=== PATIENT | female | born 1985 | race Caucasian/White ===

== ENCOUNTER 2018-02-19 14:36 | Emergency (ER) | payer OTHER ==
--- NOTE | 2018-02-19 15:22 | ED PDOC ---
Lower Extremity Pain/Injury Time Seen by Provider: 02/19/18 14:45 Chief Complaint (Nursing): Lower Extremity Problem/Injury Chief Complaint (Provider): Lower Extremity Problem/Injury History Per: Patient History/Exam Limitations: no limitations Onset/Duration Of Symptoms: Days (x1) Current Symptoms Are (Timing): Still Present Additional Complaint(s): 32 year old female who is 23 weeks presents to the ED for evaluation of left calf pain and swelling that developed yesterday. Today while at work, patient reports that her coworker pointed out that her right leg also looks swollen, despite being painless. Otherwise denies chest pain, shortness of breath, hx of DVT / PE, trauma, numbness, and tingling. OBGYN: Navdeep Aly Past Medical History Reviewed: Historical Data, Nursing Documentation, Vital Signs Vital Signs: Last Vital Signs Temp 98.3 F 02/19/18 14:40 Pulse 80 02/19/18 14:40 Resp 16 02/19/18 14:40 BP 110/74 02/19/18 14:40 Pulse Ox 100 02/19/18 14:40 - Medical History PMH: No Chronic Diseases - Family History Family History: States: Unknown Family Hx - Home Medications Home Medications: Ambulatory Orders Medication Instructions Recorded Mupirocin 2% Cream [Bactroban 1 applic TOP BID #1 tube 03/11/16 Cream] - Allergies Allergies/Adverse Reactions: Allergies Allergy/AdvReac Type Severity Reaction Status Date / Time No Known Allergies Allergy Verified 02/19/18 14:39 Review of Systems ROS Statement: Except As Marked, All Systems Reviewed And Found Negative Cardiovascular: Negative for: Chest Pain Respiratory: Negative for: Shortness of Breath Musculoskeletal: Positive for: Other (left calf pain and swelling; right calf swelling, no pain) Neurological: Negative for: Numbness (or tingling) Physical Exam - Reviewed Nursing Documentation Reviewed: Yes Vital Signs Reviewed: Yes - Physical Exam Appears: Positive for: No Acute Distress (speaking in full sentences) Skin: Positive for: Normal Color. Negative for: Rash Pulses-Dorsalis Pedis (L): 2+ Pulses-Dorsalis Pedis (R): 2+ Extremity: Positive for: Normal ROM, Tenderness (minimal left calf tenderness, no right calf tenderness), Other (non-pitting edema noted to right calf; negative Cj's sign bilaterally) Neurologic/Psych: Positive for: Alert, Oriented (x3) - ECG O2 Sat by Pulse Oximetry: 100 (RA) Pulse Ox Interpretation: Normal Medical Decision Making Medical Decision Making: Time: 1452 Initial Impression: r/o DVT Initial Plan: --US duplex bilateral LE 1617 US FINDINGS: 2-D, color and duplex Doppler analysis of bilateral lower extremity venous circulation using routine protocol from the femoral veins through the popliteal veins. Venous compressibility: Normal. Flow and augmentation patterns: Normal. Visualized veins upper third of calf: Normal. Schroeder cyst: None. IMPRESSION: No sonographic or Doppler evidence for DVT in lower extremities. Scribe Attestation: Documented by Mary Kay Reveles, acting as a scribe for Dashawn Espinosa PA-C. Provider Scribe Attestation: All medical record entries made by the Scribe were at my direction and personally dictated by me. I have reviewed the chart and agree that the record accurately reflects my personal performance of the history, physical exam, medical decision making, and the department course for this patient. I have also personally directed, reviewed, and agree with the discharge instructions and disposition. Disposition - Clinical Impression Clinical Impression: Leg pain - Patient ED Disposition Is Patient to be Admitted: No - Disposition Referrals: Navdeep Aly MD [Staff Provider] - Disposition: Routine/Home Disposition Time: 16:33 Condition: STABLE Additional Instructions: Follow up with your OBGYN for further evaluation. Return to ED immediately if symptoms worsen. NOEMY GALLEGOS, thank you for letting us take care of you today. Your provider was Vivek Haro MD and you were treated for 23 WKS PREG; LT LEG SWELLING. The emergency medical care you received today was directed at your acute symptoms. If you were prescribed any medication, please fill it and take as directed. It may take several days for your symptoms to resolve. Return to the Emergency Department if your symptoms worsen, do not improve, or if you have any other problems. Please contact your doctor or call one of the physicians/clinics you have been referred to that are listed on the Patient Visit Information form that is included in your discharge packet. Bring any paperwork you were given at discharge with you along with any medications you are taking to your follow up visit. Our treatment cannot replace ongoing medical care by a primary care provider outside of the emergency department. Thank you for allowing the [facility] team to be part of your care today. If you had an X-Ray or CT scan: A Radiologist will review the ED reading if any change in treatment is needed we will contact you. If you had a blood, urine, or wound culture: It will take several days for the results, if any change in treatment is needed we will contact you. If you had an STI test: It will take 48 hours for the results. Please call after 1 week if you have not heard back. Instructions: Muscle and Bone Pain (DC) Forms: [employer] (Occitan) Print Language: PANAMANIAN
--- NOTE | 2018-02-19 16:22 | US ---
Date of service: 02/19/2018 HISTORY: L leg pain, b/l leg swelling. PRIORS: None. FINDINGS: 2-D, color and duplex Doppler analysis of bilateral lower extremity venous circulation using routine protocol from the femoral veins through the popliteal veins. Venous compressibility: Normal. Flow and augmentation patterns: Normal. Visualized veins upper third of calf: Normal. Schroeder cyst: None. IMPRESSION: No sonographic or Doppler evidence for DVT in lower extremities.
[2018-02-19 17:00] VITALS: BP 113/72; PULSE 79; RESP 17; TEMP 98.2; O2SAT 99
== END 2018-02-19 17:51 | disposition home or self-care (01) ==
LOC: H.ER 14:36
DX: M79.605 Pain in left leg (principal); Z33.1 Pregnant state, incidental

== ENCOUNTER 2018-05-20 15:15 | Emergency (ER) | payer OTHER ==
[2018-05-20 22:38] VITALS: BP 103/72; PULSE 102; RESP 18; TEMP 98.3; O2SAT 99
== END 2018-05-20 17:00 | disposition home or self-care (01) ==
LOC: H.EROB2 15:15
DX: O47.03 False labor before 37 completed weeks of gestation, third trimester (principal); Z3A.36 36 weeks gestation of pregnancy; O21.0 Mild hyperemesis gravidarum; M79.10 Myalgia, unspecified site

== ENCOUNTER 2018-06-16 18:44 | Inpatient (IN) | payer OTHER ==
[2018-06-16 20:04] VITALS: BMI 27.4
[2018-06-16 21:02] LABS: BASO % 0.4 % (0.0-2.0); EOS % 0.6 % (0.0-4.0); HEMOGLOBIN 12.2 g/dL (12.0-16.0); LYMPH # 1.9 K/uL (1.0-4.3); LYMPH % 22.6 % (20.0-40.0); MEAN CELL VOLUME 77.3 fl (81.0-99.0); MEAN CORPUSCULAR HEMOGLOBIN 24.7 pg (27.0-31.0); MEAN CORPUSCULAR HGB CONC 31.9 g/dL (33.0-37.0); MEAN PLATELET VOLUME 8.9 fl (7.2-11.7); MONO # 0.6 K/uL (0.0-0.8); MONO % 7.4 % (0.0-10.0); NEUT # 5.8 K/uL (1.8-7.0); NRBC % 0.1 % (0.0-0.0); RBC 4.95 Mil/uL (3.80-5.20); RED CELL DISTRIBUTION WIDTH 15.2 % (11.5-14.5); WHITE BLOOD COUNT 8.4 K/uL (4.8-10.8)
--- NOTE | 2018-06-16 21:04 | OBADHP ---
Datetime: 06/16/2018 20:26 Admit Comment, IP Provider: term uneventful course admitted for delivery Pelvic Type - PN: Adequate Extremities - PN: Normal Abdomen - PN: Normal Back - PN: Normal Breast - PN: Normal Lungs - PN: Normal Heart - PN: Normal Thyroid - PN: Normal Neurologic - PN: Normal HEENT - PN: Normal General - PN: Normal Presentation-Admit: Vertex FHR - Baseline A Provider: 130 Membranes, Provider: Intact Contraction Comments Provider: irregular Gestation - Est Wks by US: 40+ Vital Signs Provider: Reviewed; Within Normal Limits NICHD Variability Prov Fetus A: Moderate 6-25bpm NICHD Accel Fetus A IP Provider: 10X10 FHR Category Provider Fetus A: Category I NICHD Decel Fetus A IP Provider: None Genitourinary Exam: Normal DTRs - PN: Normal IP Adm Impression: Postterm, intrauterine IP Admit Plan: Admit to unit; Initiate labor induction protocol
[2018-06-17 00:21] VITALS: O2SAT 99
[2018-06-17] MEDS ORDERED: Nalbuphine HCL 10 mg/ml Ampule IVP PRN (01:53)
[2018-06-17] MEDS ORDERED: Nalbuphine 20 mg/ml Inj (10 ml) ONE (02:14)
[2018-06-17] MEDS: Lactated Ringer's 1,000 ML IV ONE ×2 (03:00→04:00)
[2018-06-17] MEDS: Lactated Ringer's 1,000 ML IV SCH ×3 (05:00→16:00)
[2018-06-17] MEDS ORDERED: Fentanyl/Bupivacaine HCl 250 ML EPI ONE (08:57)
[2018-06-17] MEDS ORDERED: Oxytocin 30 UNIT 30 UNITS/500 ML BAG IV ONE ×4 (11:06→11:29)
[2018-06-17] MEDS ORDERED: OXYTOCIN/0.9 % NS 20 UNIT/1,000 ML BAG IV SCH (11:15)
--- NOTE | 2018-06-17 18:41 | OBDS ---
DELIVERY PERSONNEL Delivery Doctor: Claire Aly MD Scrub Nurse: Ishmael Service Assistant: Michelle Rebollar RN MATERNAL INFORMATION Delivery Anesthesia: Local; Epidural Medications in Delivery: Pitocin 30 units Estimated Blood Loss (ml): 200ml Placenta Cultured: No Maternal Complications: None Provider Comments: delivery of live baby girl 9/9 clear fluid cord with 3 vessels placenta int act midline episiotomy and repair LABOR SUMMARY EDC: 06/12/2018 00:00 No. Babies in Womb: 1 Attempted: No Labor Anesthesia: Epidural LABOR INFORMATION Reason for Induction: Postterm Complete Dilatation: 06/17/2018 16:20 Cervical Ripening Agents: Cervidil (Annotations: Inserted by Dr. Aly ) Oxytocin: N/A Group B Beta Strep: Negative Steroids Given: None Reason Steroids Not Administered: Not Applicable MEMBRANES Membranes Rupture Method: Artificial Rupture of Membranes: 06/17/2018 10:00 Length of Rupture (hrs): 8.05 Amniotic Fluid Color: Clear Amniotic Fluid Amount: Moderate Amniotic Fluid Odor: Normal STAGES OF LABOR Stage 2 hrs: 1 Stage 2 min: 43 Stage 3 hrs: 0 Stage 3 min: 6 VAGINAL DELIVERY Episiotomy: Median Laceration Type: None Laceration Repair: Yes Laceration Repair Note: repair of midline episiotomy with 2-0 chromic Initial Vag Sponge Count: 10 Final Vag Sponge Count: 10 Initial Vag Sharps Count: 1 Final Vag Sharps Count: 1 Sponge Count Correct: Yes Sharps Count Correct: Yes Count Comment: correct BABY A INFORMATION Delivery Date/Time: 06/17/2018 18:03 Method of Delivery: Vaginal Born in Route : No : N/A Forceps: N/A Vacuum Extraction: N/A Shoulder Dystocia : No SHOULDER DYSTOCIA BABY A Infant Delivery Date/Time: 06/17/2018 18:03 PRESENTATION/POSITION BABY A Presentation: Cephalic Cephalic Presentation: Vertex Breech Presentation: N/A PLACENTA INFORMATION BABY A Placenta Delivery Time : 06/17/2018 18:09 Placenta Method of Delivery: Spontaneous Placenta Status: Delivered SCORES BABY A Heart Rate 1 min: >100 bpm Resp Effort 1 min: Good Cry Reflex Irritability 1 min: Cough or Sneeze or Pulls Away Muscle Tone 1 min: Active Motion Color 1 min: Body [place], Extremities Blue Resuscitation Effort 1 min: Tactile Stimulation SCORE 1 MIN: 9 Heart Rate 5 min: >100 bpm Resp Effort 5 min: Good Cry Reflex Irritability 5 min: Cough or Sneeze or Pulls Away Muscle Tone 5 min: Active Motion Color 5 min: Body [place], Extremities Blue Resuscitation Effort 5 min: Tactile Stimulation SCORE 5 MIN: 9 INFANT INFORMATION BABY A Gestational Age at Delivery: 40.0 Gestational Status: Term Infant Outcome : Liveborn Condition : Stable Sex: Female IDENTIFICATION/MEDS BABY A ID Band Number: [id number] ID Band Location: Left Leg; Left Arm WEIGHT/LENGTH BABY A Birthweight (gms): 3240 Weight (lb): 7 Infant Weight (oz): 2 CORD INFORMATION BABY A No. Cord Vessels: 3 Cord Blood Taken: N/A Suction: None ASSESSMENT BABY A Infant Complications: Multiple Late Decels; Multiple Variable Decels Physical Findings at Delivery: Caput Succedaneum; Molding of the Head Infant Respirations: Appears Normal Fire Services Plumber/ALS Called : No Care By: Mari Camejo/ Ale Transferred To: [facility]
[2018-06-17] MEDS ORDERED: Benzocaine/Menthol SPRAY TOP PRN ×2 (18:42→21:25)
[2018-06-17] MEDS ORDERED: Oxycodone/Acetaminophen 5/325 mg Tab PO PRN ×3 (18:42→21:25)
[2018-06-17] MEDS ORDERED: OXYTOCIN/0.9 % NS 20 UNIT/1,000 ML BAG IV ONE (18:42)
[2018-06-17] MEDS: Oxycodone/Acetaminophen 5/325 mg Tab PO PRN (22:17)
[2018-06-18 06:36] LABS: BASO % 0.3 % (0.0-2.0); EOS # 0.1 K/uL (0.0-0.7); EOS % 0.7 % (0.0-4.0); HEMOGLOBIN 10.7 g/dL (12.0-16.0); LYMPH # 2.2 K/uL (1.0-4.3); LYMPH % 15.1 % (20.0-40.0); MEAN CELL VOLUME 77.6 fl (81.0-99.0); MEAN CORPUSCULAR HGB CONC 32.3 g/dL (33.0-37.0); MEAN PLATELET VOLUME 9.1 fl (7.2-11.7); MONO # 1.1 K/uL (0.0-0.8); MONO % 7.3 % (0.0-10.0); NEUT # 11.3 K/uL (1.8-7.0); NEUT % 76.6 % (50.0-75.0); RBC 4.29 Mil/uL (3.80-5.20); RED CELL DISTRIBUTION WIDTH 16.1 % (11.5-14.5); WHITE BLOOD COUNT 14.7 K/uL (4.8-10.8)
--- NOTE | 2018-06-18 08:48 | OBPPN ---
Datetime: 06/18/2018 08:45 PP Pain Prov: Within normal limits PP Nausea Prov: Denies PP Flatus Prov: Yes PP BM Prov: No PP Breasts Prov: Normal PP Heart Prov: Normal PP Lungs Prov: Normal PP Abdomen/Uterus Prov: Normal PP Lochia Prov: Normal PP Vulva/Perineum Prov: Normal PP CVA Tenderness Prov: Normal PP Extremities Prov: Normal PP Progress Prov: Normal PP Impression Prov: Normal progression PP Plan Prov: Continue present management PP Progress Note Prov: stable ppd1 continue present care may shower oob with assistance IP PP Procedures: None
[2018-06-19] MEDS: Oxycodone/Acetaminophen 5/325 mg Tab PO PRN (05:33)
--- NOTE | 2018-06-19 08:53 | OBDCSUM ---
Datetime: 05/20/2018 17:00 Disch Instr Activity: Normal activity; Bedrest; May be up to bathroom; May be up for meals; May Show er Discharge Instructions, Provider: Routine instructions given Discharge Diagnosis, Provider: Term Delivered Discharge Time: 06/19/2018 08:48 Disch Activity Restrictions: No exercising; No lifting; No driving; Minimize walking; Minimize stair -climbing; No sexual activity; Nothing in vagina - [place], tampons, douche Discharge Comment, Provider: dc home today rto 1 week to check bp call office if any problems Contraception after Delivery: Undecided
[2018-06-19 20:08] VITALS: BP 125/82; PULSE 81; RESP 20; TEMP 97.5
== END 2018-06-19 15:35 | disposition home or self-care (01) | DRG 807 ==
LOC: H.EROB2 18:44 → H.L&D 20:04 → H.OB/GYN 06-17 21:08
PROVIDERS: ADMIT Specialist; ATTEND Specialist
PROC: 4A1HXCZ Monitoring of Products of Conception, Cardiac Rate, External Approach (ICD-10-PCS; 2018-06-16)
PROC: 10E0XZZ Delivery of Products of Conception, External Approach (ICD-10-PCS; principal; 2018-06-17)
PROC: 0W8NXZZ Division of Female Perineum, External Approach (ICD-10-PCS; 2018-06-17)
DX: O76 Abnormality in fetal heart rate and rhythm complicating labor and delivery (principal); Z37.0 Single live birth; Z3A.40 40 weeks gestation of pregnancy

== ENCOUNTER 2018-06-23 21:02 | Emergency (ER) | payer OTHER ==
[2018-06-23 21:02] VITALS: BMI 27.4
[2018-06-23] MEDS ORDERED: Sodium Chloride 0.9% 1,000 ML IV STA (21:37)
--- NOTE | 2018-06-23 21:40 | ED PDOC ---
HPI: General Adult Time Seen by Provider: 06/23/18 21:26 Chief Complaint (Nursing): Fever Chief Complaint (Provider): fever History Per: Patient History/Exam Limitations: no limitations Onset/Duration Of Symptoms: Hrs Current Symptoms Are (Timing): Better Additional Complaint(s): 32 y/o female presents for evaluation of fever, tmax 101.9F, x 2 hours. Denies ear pain, throat pain, cough, chest pain, shortness of breath, palpitations, abdominal pain, urinary symptoms, recent travel, sick contacts. Patient is 6- days vaginal delivery with episiotomy; denies vaginal pain or bleeding currently Past Medical History Reviewed: Historical Data, Nursing Documentation, Vital Signs Vital Signs: Last Vital Signs Temp 100.5 F H 06/23/18 21:09 Pulse 117 H 06/23/18 21:09 Resp 17 06/23/18 21:09 BP 125/71 06/23/18 21:09 Pulse Ox 100 06/23/18 21:09 - Medical History PMH: No Chronic Diseases Denies: Depression, Diabetes, HTN - Surgical History Surgical History: No Surg Hx - Family History Family History: States: Unknown Family Hx - Home Medications Home Medications: Ambulatory Orders Medication Instructions Recorded Multivit/Folic Acid/I 1 tab PO DAILY 06/16/18 [ Plus] Cefadroxil 1 g PO BID #20 tab 06/24/18 - Allergies Allergies/Adverse Reactions: Allergies Allergy/AdvReac Type Severity Reaction Status Date / Time No Known Allergies Allergy Verified 06/16/18 20:03 Review of Systems ROS Statement: Except As Marked, All Systems Reviewed And Found Negative Constitutional: Positive for: Fever Physical Exam - Reviewed Nursing Documentation Reviewed: Yes Vital Signs Reviewed: Yes - Physical Exam Appears: Positive for: Well, Non-toxic, No Acute Distress Head Exam: Positive for: ATRAUMATIC, NORMAL INSPECTION, NORMOCEPHALIC Skin: Positive for: Normal Color Eye Exam: Positive for: Normal appearance ENT: Positive for: Normal ENT Inspection Cardiovascular/Chest: Positive for: Regular Rate, Rhythm Respiratory: Positive for: Normal Breath Sounds Gastrointestinal/Abdominal: Positive for: Bowel Sounds, Soft, Tenderness (llq) Back: Positive for: Normal Inspection Extremity: Positive for: Normal ROM Neurologic/Psych: Positive for: Alert, Oriented (x3) - Laboratory Results Result Diagrams: 06/23/18 21:52 06/23/18 21:52 - ECG O2 Sat by Pulse Oximetry: 100 - Progress ED Course And Treament: -cbc -cmp -lactic acid -influenza -rapid strep -urinalysis -urine x&S -IV NS bolus -PO tylenol On re-eval, patient states she is feeling better. IV rocephin dose given for UTI Patient educated on findings, discharged with rx Cefadroxil Advised to continue ibuprofen/tylenol PRN fever. INcrease fluid intake Follow up PMD within 2-3 days Return precautions given Disposition - Clinical Impression Clinical Impression: UTI (urinary tract infection) - Patient ED Disposition Is Patient to be Admitted: No Counseled Patient/Family Regarding: Studies Performed, Diagnosis, Need For Followup, Rx Given - Disposition Disposition: Routine/Home Disposition Time: 00:33 Condition: IMPROVED Prescriptions: Cefadroxil 1 g PO BID #20 tab Instructions: Urinary Tract Infections in Adults Forms: [employer] (Lao)
[2018-06-23 22:25] LABS: BASO % 0.2 % (0.0-2.0); EOS # 0.1 K/uL (0.0-0.7); EOS % 1.7 % (0.0-4.0); HEMOGLOBIN 12.6 g/dL (12.0-16.0); LYMPH # 0.5 K/uL (1.0-4.3); LYMPH % 7.8 % (20.0-40.0); MEAN CELL VOLUME 77.4 fl (81.0-99.0); MEAN CORPUSCULAR HEMOGLOBIN 25.2 pg (27.0-31.0); MEAN CORPUSCULAR HGB CONC 32.6 g/dL (33.0-37.0); MEAN PLATELET VOLUME 7.7 fl (7.2-11.7); MONO # 0.2 K/uL (0.0-0.8); MONO % 3.7 % (0.0-10.0); NEUT # 5.5 K/uL (1.8-7.0); NEUT % 86.6 % (50.0-75.0); PLATELET COUNT 297 K/uL (130-400); RBC 4.99 Mil/uL (3.80-5.20); RED CELL DISTRIBUTION WIDTH 15.8 % (11.5-14.5); WHITE BLOOD COUNT 6.3 K/uL (4.8-10.8)
[2018-06-23 22:28] LABS: SQUAMOUS EPITHIAL 2 /hpf (0-5); URINE BACTERIA RARE (<OCC); URINE BILIRUBIN NEGATIVE (NEGATIVE); URINE BLOOD LARGE (NEGATIVE); URINE CLARITY SLIGHTY-CLOUDY (Clear); URINE COLOR STRAW (YELLOW); URINE GLUCOSE (UA) NEG (NEGATIVE); URINE LEUKOCYTE ESTERASE MOD Leu/uL (Negative); URINE PROTEIN NEGATIVE (NEGATIVE); URINE UROBILINOGEN 0.2-1.0 mg/dL (0.2-1.0)
[2018-06-23 22:31] LABS: ALB/GLOB RATIO 1.1 (1.0-2.1); ALBUMIN 3.6 g/dL (3.5-5.0); ALT/SGPT 35 U/L (9-52); AST/SGOT 24 U/L (14-36); BLOOD UREA NITROGEN 9 mg/dl (7-17); CALCIUM 8.6 mg/dL (8.4-10.2); GFR NON-AFRICAN AMERICAN > 60
[2018-06-23] MEDS ORDERED: cefTRIAXone (Rocephin) 1 gm Inj ONE (23:04)
[2018-06-23 23:19] LABS: ANISOCYTOSIS SLIGHT; BANDS 2 % (0-2); EOSINOPHIL 2 % (0-7); HYPOCHROMIC SLIGHT; LYMPHOCYTE 9 % (20-50); MICROCYTOSIS SLIGHT; MONOCYTE 6 % (0-10); NEUTROPHIL 81 % (42-75); PLATELET ESTIMATE NORMAL (NORMAL); TOTAL CELLS COUNTED 100
[2018-06-24 00:23] VITALS: BP 116/71; PULSE 100; RESP 18; TEMP 99.2
[2018-06-24 00:33] VITALS: O2SAT 100
== END 2018-06-24 00:35 | disposition home or self-care (01) ==
LOC: H.ER 21:02
DX: N39.0 Urinary tract infection, site not specified (principal)
CPT/HCPCS: 80053; 81003; 83605; 85025; 87070; 87086; 87430; 87804; 96361; 96365; 99284; J0696; J7030